=== PATIENT | male | born 2000 ===

== ENCOUNTER 2022-03-20 14:50 | Day surgery (SDC) | payer SELFPAY ==
[~2022-03-20] VITALS: Ht 157.5 cm; Wt 90.9 kg
[2022-03-20] MEDS ORDERED: MORPHINE 4 MG/ML 1ML VIAL/SYRINGE IV ONE (15:35)
[2022-03-20] MEDS ORDERED: HOME MED LIST COMPLETE! XX SCH (17:20)
[2022-03-20] MEDS ORDERED: propofoL 200 MG/20 ML VIAL As Ordered ONE (17:33)
[2022-03-20] MEDS ORDERED: MIDAZOLAM INJ 2MG/2ML VIAL (J2250 PER 1MG) As Ordered ONE (17:33)
[2022-03-20] MEDS ORDERED: ONDANSETRON 4MG 2ML VIAL As Ordered ONE (17:33)
[2022-03-20] MEDS ORDERED: LIDOCAINE 2% 100MG/5ML SDV (FOR ANES.) As Ordered ONE (17:33)
[2022-03-20] MEDS ORDERED: fentaNYL 100 MCG/2 ML INJECTION As Ordered ONE (17:33)
[2022-03-20] MEDS ORDERED: dexameTHASONE 4 MG/ML 1ML VIAL (J1100 PER 1MG) As Ordered ONE (17:33)
[2022-03-20] MEDS ORDERED: NS 1,000 ML IV SCH (18:15)
[2022-03-20 19:13] VITALS: BP 145/83
== END 2022-03-20 19:31 | disposition home or self-care (01) ==
LOC: M ED 14:50 → M SDC 18:15
PROVIDERS: ATTEND Orthopaedic Surgery
DX: S53.124A Posterior dislocation of right ulnohumeral joint, initial encounter (principal); W50.0XXA Accidental hit or strike by another person, initial encounter; Y99.1 Military activity
CPT/HCPCS: 24605; 73060; 73080; 73090; 76000; 87635; 96374; 99284; J1100; J2250; J2270; J2405; J3010